=== PATIENT | male | born 1985 | race African-American/Black ===

== ENCOUNTER 2022-06-09 17:31 | Emergency (ER) | payer OTHER, SELFPAY ==
--- NOTE | ~2022-06-09 | CT_ITS ---
EXAMINATION: CT chest abdomen pelvis w con DATE: 06/09/2022 18:59 INDICATION: Epigastric and retrosternal pain TECHNIQUE: Computed tomography (CT) of the chest, abdomen, and pelvis was performed with 100 mL Omnip aque-350 intravenous contrast. Automated exposure control and iterative reconstruction technique were employed. The dose-length product was 395.41 mGy-cm. COMPARISON: None FINDINGS: CHEST CT: Several scattered bilateral calcified pulmonary nodules along with calcified bilateral hilar and medi astinal lymph nodes consistent with old granulomatous disease. No pneumonia, pulmonary edema or pleur al effusion. Heart size is normal. No pericardial effusion. Thoracic aorta is normal in caliber with no dissection. Although not performed as a dedicated pulmonary embolism protocol there is no central pulmonary embolism. No pathologically enlarged thoracic lymphadenopathy. Bones are unremarkable. ABDOMEN/PELVIS CT: Cholecystectomy clips the gallbladder fossa. Liver, spleen, pancreas, bilateral adrenal glands and ki dneys are normal. Bowels and appendix are unremarkable. Bladder is normal. No free intraperitoneal ga s or fluid. No pathologically enlarged abdominal or pelvic lymphadenopathy. Old right femoral diaphys eal fracture with antegrade intramedullary betty and interlocking intratrochanteric screw fixation. IMPRESSION: 1. No acute cardiopulmonary disease. 2. No acute intra-abdominal/pelvic process. Reviewed, dictated and finalized at location A. NG COACH
[2022-06-09 17:36] VITALS: BP 129/78; PULSE 86; RESP 18; TEMP 36.7; O2SAT 99
[2022-06-09 17:53] LABS: Basophils Percent Auto 0.6 % (0.2-1.2); Eosinophils Absolute Auto 0.1 K/mm3 (0-0.3); Eosinophils Percent Auto 1.3 % (0-4.4); Hematocrit 43.5 % (42.0-52.0); Hemoglobin 14.1 g/dL (14.0-18.0); Immature Granulocyte Absolute 0.02 K/mm3 (0.00-0.031); Immature Granulocyte Percent A 0.3 % (0-0.5); Lymphocytes Absolute Auto 1.74 K/mm3 (0.9-3.2); Lymphocytes Percent Auto 24.9 % (18.3-44.2); Mean Corpuscular HGB Conc 32.4 g/dl (32-36); Mean Corpuscular Volume 86.5 fl (80-100); Mean Platelet Volume 9.1 fl (7.4-10.4); Monocytes Absolute Auto 0.7 K/mm3 (0.1-0.6); Monocytes Percent Auto 9.4 % (2.6-8.5); Neutrophils Absolute Auto 4.4 K/mm3 (1.3-6.7); Neutrophils Percent Auto 63.5 % (45.5-73.1); Platelet Count Result 245 k/mm3 (150-375); Red Blood Count 5.03 M/mm3 (4.6-6.20); Red Cell Distribution Width 13.1 % (11.5-14.5)
[2022-06-09 18:02] LABS: Alanine Aminotransferase 14 U/L (6-50); Albumin Level 4.6 g/dL (3.5-5.1); Alkaline Phosphatase 63 U/L (38-126); Anion Gap 6 mmol/L (8-16); Aspartate Amino Transferase 24 U/L (17-59); Bilirubin,Total 0.9 mg/dL (0.2-1.3); Blood Urea Nitrogen 11 mg/dL (9-20); Carbon Dioxide 22 mmol/L (22-30); Chloride 106 mmol/L (98-107); Estimated CRCL calculation 102 ml/min; Estimated Glomerular Filt Rate > 60; Glucose 94 mg/dL (65-110); Lipase 610 U/L (23-300); Potassium 4.1 mmol/L (3.4-5.0); Sodium 134 mmol/L (137-145)
--- NOTE | 2022-06-09 18:04 | PC.NURSE ---
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
--- NOTE | 2022-06-09 18:14 | ED.ABDPAIN ---
HPI - Abdominal Pain General Chief Complaint: Abdominal Pain Stated Complaint: abd pain, hx of pancreatitis Time Seen by Provider: 06/09/22 18:02 Source: patient and EMS Mode of arrival: EMS Limitations: no limitations History of Present Illness HPI narrative: 37 years old -[place] male came by ambulance complaining of abdominal pain and chest pain started 3 days ago. Patient reported that he been having similar pain since 2017 without specific diagnosis. Patient reports nausea, vomiting, diarrhea. He denies any fever or chills. He denies any shortness of breath. Pain mainly at the sternal, epigastric area radiating all the way to the back. Worse with movement and vomiting. History of GERD, cholecystectomy, tobacco use and marijuana use Related Data Allergies Allergy/AdvReac Type Severity Reaction Status Date / Time aspirin AdvReac Nausea Verified 06/09/22 17:45 tramadol AdvReac Anxiety Verified 06/09/22 17:45 Review of Systems Review of Systems: All systems reviewed & are unremarkable except as noted in HPI and below Exam Narrative: General appearance: Well-developed, well-nourished, in severe pain Skin: Normal color Head: Normocephalic, nontraumatic Eyes: Clear conjunctiva ENT: Oropharynx normal, ears normal, nose normal Neck: Supple, nontender Chest and respiratory: Airway patent, no respiratory distress, no accessory muscle use Heart: Regular rate/rhythm Abdomen: Firm, diffusely tende mainly epigastric area, guarding, quiet bowel sounds Vascular: Normal peripheral pulses, normal capillary refill. Musculoskeletal: Normal range of motion, nontender back Neurologic: Alert and oriented ?3, [employer] is normal as tested, no gross motor deficit Course Reevaluation(s) Reevaluation #1: Patient feeling much better after IV fluid, Dilaudid and Zofran IV. Patient care turned over to Dr. NUNN at shift change, awaiting labs, imaging, disposition. Patient been resting quietly in the emergency room without any issues or problems. Date: 06/09/22 Time: 18:56 Vital Signs Vital signs: Vital Signs Temperature 36.7 C 06/09/22 17:36 Pulse Rate 86 06/09/22 17:36 Respiratory Rate 18 06/09/22 17:36 Blood Pressure 129/78 06/09/22 17:36 Pulse Oximetry 99 06/09/22 17:36 Oxygen Delivery Room Air 06/09/22 17:36 Temperature 36.7 C 06/09/22 17:36 Pulse Rate 86 06/09/22 17:36 Respiratory Rate 18 06/09/22 17:36 Blood Pressure 129/78 06/09/22 17:36 Pulse Oximetry 99 06/09/22 17:36 Oxygen Delivery Room Air 06/09/22 17:36 MDM - Abdominal Pain Differential Diagnosis Differential diagnosis: Likely abdominal pain, acute appendicitis, constipation, diverticulitis, gastroenteritis, pancreatitis, small bowel obstruction and other (Esophagitis, gastritis, duodenitis) Lab Data 06/09/22 17:44 06/09/22 17:44 Labs: Lab Results 06/09/22 06/09/22 Range/Units 17:44 17:44 WBC 7.0 (4.5-10.0) K/mm3 RBC 5.03 (4.6-6.20) M/mm3 Hgb 14.1 (14.0-18.0) g/dL Hct 43.5 (42.0-52.0) % MCV 86.5 (80-100) fl MCH 28.0 (26-34) pg MCHC 32.4 (32-36) g/dl RDW 13.1 (11.5-14.5) % Plt Count 245 (150-375) k/mm3 MPV 9.1 (7.4-10.4) fl Immature Gran % (Auto) 0.3 (0-0.5) % Neut % (Auto) 63.5 (45.5-73.1) % Lymph % (Auto) 24.9 (18.3-44.2) % [place] % (Auto) 9.4 H (2.6-8.5) % Eos % (Auto) 1.3 (0-4.4) % Baso % (Auto) 0.6 (0.2-1.2) % Lymph # (Auto) 1.74 (0.9-3.2) K/mm3 [place] # (Auto) 0.7 H (0.1-0.6) K/mm3 Eos # (Auto) 0.1 (0-0.3) K/mm3 Baso # (Auto) 0.0 (0.0-0.1) K/mm3 Abs Immat Gran (auto) 0.02 (0.00-0.031) K/mm3 Absolute Neuts (auto) 4.4
[2022-06-09] MEDS: HYDROmorphone HCL INJ (*CRX) 1 MG/ML SYR 0.5 MG IV PUSH (18:29)
[2022-06-09] MEDS: ONDANSETRON INJ 4 MG/2 ML VIAL IV PUSH (18:29)
[2022-06-09] MEDS: SODIUM CHLORIDE 0.9% IV 1,000 ML 999 ML IV CONT (18:29)
[2022-06-09 19:18] VITALS: BP 102/65; PULSE 72; RESP 16; O2SAT 98
--- NOTE | 2022-06-09 20:20 | ED.GENADULT ---
HPI - General Adult General Chief complaint: Abdominal Pain Stated complaint: abd pain, hx of pancreatitis Time Seen by Provider: 06/09/22 18:02 Source: patient and EMS Mode of arrival: EMS Limitations: no limitations Related Data Allergies Allergy/AdvReac Type Severity Reaction Status Date / Time aspirin AdvReac Nausea Verified 06/09/22 17:45 tramadol AdvReac Anxiety Verified 06/09/22 17:45 Course Course Emergency Course: ZYCH: Patient was signed out to me pending completion of his imaging. CT of the chest abdomen pelvis was negative. When I talked to the patient he said that he smokes 3 blunts Of marijuanaa day. His symptoms are relieved by hot showers. findings are consistent with cannabinoid hyperemesis. Patient was given Compazine as he does not like how Haldol makes him feel. He was then discharged with instructions to stop smoking marijuana. Vital Signs Vital signs: Vital Signs Temperature 98.1 F 06/09/22 17:36 Pulse Rate 86 06/09/22 17:36 Respiratory Rate 18 06/09/22 17:36 Blood Pressure 129/78 06/09/22 17:36 Pulse Oximetry 99 06/09/22 17:36 Oxygen Delivery Room Air 06/09/22 17:36 Temperature 98.1 F 06/09/22 17:36 Pulse Rate 60 06/09/22 20:33 Respiratory Rate 18 06/09/22 20:33 Blood Pressure 120/82 06/09/22 20:33 Pulse Oximetry 100 06/09/22 20:33 Oxygen Delivery Room Air 06/09/22 17:36 Medical Decision Making Vital Signs Vital Signs: Vital Signs Temperature 98.1 F 06/09/22 17:36 Pulse Rate 86 06/09/22 17:36 Respiratory Rate 18 06/09/22 17:36 Blood Pressure 129/78 06/09/22 17:36 Pulse Oximetry 99 06/09/22 17:36 Oxygen Delivery Room Air 06/09/22 17:36 Temperature 98.1 F 06/09/22 17:36 Pulse Rate 60 06/09/22 20:33 Respiratory Rate 18 06/09/22 20:33 Blood Pressure 120/82 06/09/22 20:33 Pulse Oximetry 100 06/09/22 20:33 Oxygen Delivery Room Air 06/09/22 17:36 Lab Data 06/09/22 17:44 06/09/22 17:44 Labs: Lab Results 06/09/22 06/09/22 06/09/22 Range/Units 17:44 17:44 20:08 WBC 7.0 (4.5-10.0) K/mm3 RBC 5.03 (4.6-6.20) M/mm3 Hgb 14.1 (14.0-18.0) g/dL Hct 43.5 (42.0-52.0) % MCV 86.5 (80-100) fl MCH 28.0 (26-34) pg MCHC 32.4 (32-36) g/dl RDW 13.1 (11.5-14.5) % Plt Count 245 (150-375) k/mm3 MPV 9.1 (7.4-10.4) fl Immature Gran % (Auto) 0.3 (0-0.5) % Neut % (Auto) 63.5 (45.5-73.1) % Lymph % (Auto) 24.9 (18.3-44.2) % [place] % (Auto) 9.4 H (2.6-8.5) % Eos % (Auto) 1.3 (0-4.4) % Baso % (Auto) 0.6 (0.2-1.2) % Lymph # (Auto) 1.74 (0.9-3.2) K/mm3 [place] # (Auto) 0.7 H (0.1-0.6) K/mm3 Eos # (Auto) 0.1 (0-0.3) K/mm3 Baso # (Auto) 0.0 (0.0-0.1) K/mm3 Abs Immat Gran (auto) 0.02 (0.00-0.031) K/mm3 Absolute Neuts (auto) 4.4 (1.3-6.7) K/mm3 Absolute Nucleated RBC 0.0 (0.0-0.012) K/mm3 Nucleated RBC % 0.0 (0.0-0.2) % Sodium 134 L (137-145) mmol/L Potassium 4.1 (3.4-5.0) mmol/L Chloride 106 (98-107) mmol/L Carbon Dioxide 22 (22-30) mmol/L Anion Gap 6 L (8-16) mmol/L BUN 11 (9-20) mg/dL Creatinine 0.90 (0.7-1.3) mg/dL Estim Creat Clear Calc 102 ml/min Estimated GFR > 60 (59 - ) Glucose 94 (65-110) mg/dL Calcium 9.0 (8.4-10.2) mg/dL Total Bilirubin 0.9 (0.2-1.3) mg/dL AST 24 (17-59) U/L ALT 14 (6-50) U/L Alkaline Phosphatase 63 (38-126) U/L Total Protein 7.0 (6.3-8.2) g/dL Albumin 4.6 (3.5-5.1) g/dL Lipase 610 H (23-300) U/L Urine Color Yellow (Yellow) Urine Appearance Clear (Clear) Urine pH 7.0 (5.0-9.0) Ur Specific [place] 1.042 H (1.001-1.035) Urine Protein Negative (Negative) mg/dL Urine Glucose (UA) Negative (Negative) mg/dL Urine Ketones Negative (Negative) mg/dL Ur Blood (Man) Negative (Negative) Urine Nitrate Negative (Negative) Ur
[2022-06-09 20:21] LABS: Appearance Urine Clear (Clear); Bacteria Urine None Seen /hpf; Bilirubin Urine Negative (Negative); Blood Urine Negative (Negative); Color Urine Yellow (Yellow); Glucose Urine UA Negative (Negative); Ketones Urine Negative (Negative); Leukocyte Esterase Ur Trace LEU/UL (Negative); Nitrate Urine Negative (Negative); Non Pathogenic Casts 0-2; Protein Urine Negative (Negative); RBC Urine 0-2 /hpf (0-2); Squamous Epithelial Cell Urine None seen /hpf (Few)
[2022-06-09 20:24] LABS: Specific Grav Ur 1.042 (1.001-1.035)
[2022-06-09 20:25] LABS: Add Urine Microscopic? YES
[2022-06-09 20:33] VITALS: BP 120/82; PULSE 60; RESP 18; O2SAT 100
[2022-06-10 05:12] LABS: Amphetamine Screen Urine Negative (Negative); Barbiturate Screen Urine Negative (Negative); Benzodiazepines Screen Urine Negative (Negative); Cannabinoid Screen Urine Positive (Negative); Cocaine Screen Urine Negative (Negative); Methadone Screen Urine Negative (Negative); Opiate Screen Urine Positive (Negative); Phencyclidine Screen Urine Negative (Negative)
== END 2022-06-09 20:35 | disposition home or self-care (01) ==
PROVIDERS: Emergency Medicine; Emergency Provider Emergency Medicine
DX: R07.2 Precordial pain (principal); R10.13 Epigastric pain; R11.2 Nausea with vomiting, unspecified; F12.90 Cannabis use, unspecified, uncomplicated; K21.9 Gastro-esophageal reflux disease without esophagitis
CPT/HCPCS: 36415; 71260; 74177; 80053; 80307; 81001; 83690; 85025; 87086; 96360; 96361; 96374; 96375; 99284; J1170; J2405; J7030; Q9967